=== PATIENT | male | born 1970 | race Two or more races ===

== ENCOUNTER 2022-10-26 14:32 | Emergency (ER) | payer OTHER ==
[~2022-10-26] VITALS: Ht 162.6 cm; Wt 89.8 kg
[2022-10-26] MEDS ORDERED: SYNTHROID100 MCG PO (14:42)
[2022-10-26] MEDS ORDERED: AVAPRO150 MG PO (14:42)
[2022-10-26] MEDS ORDERED: HYSINGLA ER20 MG PO (14:43)
[2022-10-26] MEDS ORDERED: MONTELUKAST SODI4 M1 PO (14:43)
[2022-10-26] MEDS ORDERED: FENOFIBRATE50 MG PO (14:43)
[2022-10-26] MEDS ORDERED: CRESTOR40 MG PO (14:43)
== END 2022-10-26 20:53 | disposition home or self-care (01) ==
LOC: ER 14:32
DX: H70.891 Other mastoiditis and related conditions, right ear (principal); I10 Essential (primary) hypertension; E03.9 Hypothyroidism, unspecified